=== PATIENT | female | born 1950 | race Caucasian/White ===

== ENCOUNTER 2017-11-15 10:54 | Emergency (ER) | payer BC ==
--- NOTE | 2017-11-15 16:38 | UC ---
Olegario Lopes Angela, scribed for Carlos Luna MD on 11/15/17 at 1117 . Complaint Female HPI - HPI Summary HPI Summary: This pt is a 67 y/o female presenting to [facility] c/o dysuria, urinary frequency and urgency for the past couple of days. She states today she developed low back pain bilaterally. Denies fever, chills, abd pain, vaginal discharge or bleeding, nausea, vomiting. Pt has allergies to Cymbalta, macrodantin, penicillin, Lyrica. - History Of Current Complaint Chief Complaint: UCGU Stated Complaint: POSSIBLE UTI Time Seen by Provider: 11/15/17 11:07 Hx Obtained From: Patient Onset/Duration: Lasting Days, Still Present Timing: Lasting Days Severity Currently: Severe Pain Intensity: 10 Pain Scale Used: 0-10 Numeric Aggravating Factor(s): Nothing Alleviating Factor(s): Nothing Associated Signs And Symptoms: Positive: Back Pain. Negative: Fever, Vaginal Bleeding/Discharge, Vaginal Discharge, Nausea, Vomiting(# Of Episodes =) - Allergies/Home Medications Allergies/Adverse Reactions: Allergies Allergy/AdvReac Type Severity Reaction Status Date / Time duloxetine [From Cymbalta] Allergy Rash Verified 11/15/17 11:21 nitrofurantoin Allergy Unknown Verified 11/15/17 11:21 [From Macrodantin] Reaction Details Penicillins Allergy Hives Verified 11/15/17 11:13 pregabalin [From Lyrica] Allergy Rash Verified 11/15/17 11:21 shellfish derived Allergy Hives Verified 11/15/17 11:21 Home Medications: Home Medications Albuterol HFA INHALER* [Ventolin HFA Inhaler*] 1 puff INH Q4H 11/15/17 [History Confirmed 11/15/17] Baclofen TAB* [Lioresal TAB*] 10 mg PO TID 11/15/17 [History Confirmed 11/15/17] Buspirone HCl 10 mg 11/15/17 [History] Dicyclomine CAP* [Bentyl CAP*] 10 mg PO TID 11/15/17 [History Confirmed 11/15/17 ] Escitalopram Oxalate [Lexapro 20 mg] 20 mg PO DAILY 11/15/17 [History Confirmed 11/15/17] Fluticasone NASAL SPRAY 50MCG* [Flonase NASAL SPRAY 50MCG*] 2 spray BOTH NARES DAILY 11/15/17 [History Confirmed 11/15/17] Levothyroxine TAB* [Synthroid TAB*] 75 mcg PO 0800 11/15/17 [History Confirmed 11/15/17] Montelukast Sodium TAB* [Singulair TAB*] 10 mg PO DAILY 11/15/17 [History Confirmed 11/15/17] celeCOXIB CAP* [CeleBREX CAP*] 100 mg PO DAILY 11/15/17 [History Confirmed 11/15] traZODone TAB* [Desyrel TAB*] 50 mg PO BEDTIME 11/15/17 [History Confirmed 11/15] PMH/Surg Hx/FS Hx/Imm Hx - Additional Past Medical History Additional PMH: PMHx: fibromyalgia Other Cancer History: Anal CA - Surgical History Surgical History: Yes Surgery Procedure, Year, and Place: anal CA - Family History Known Family History: Negative: Diabetes - Social History Alcohol Use: Occasionally Substance Use Type: None Smoking Status (MU): Never Smoked Tobacco Review of Systems Constitutional: Negative Skin: Negative Eyes: Negative ENT: Negative Respiratory: Negative Cardiovascular: Negative Gastrointestinal: Negative Genitourinary: Dysuria, Frequency, Urgency, Other - NEG: vaginal bleeding, vaginal discharge Motor: Negative Neurovascular: Negative Musculoskeletal: Other: - low back pain Neurological: Negative Psychological: Negative All Other Systems Reviewed And Are Negative: Yes Physical Exam - Summary Physical Exam Summary: VITAL SIGNS: Reviewed. GENERAL: Patient is a well-developed and nourished female who is lying comfortable in the stretcher. Patient is not in any acute respiratory distress. HEAD AND FACE: Normocephalic EYES: PERRLA, EOMI x 2. EARS: Hearing grossly intact. MOUTH: Oropharynx within normal limits. NECK: Supple, trachea is midline, no adenopathy, no JVD, no carotid bruit. CHEST: Symmetric, no tenderness at palpation LUNGS: Clear to auscultation bilaterally. No wheezing or crackles. CVS: Regular rate and rhythm, S1 and S2 present, no murmurs or gallops appreciated. ABDOMEN: Soft, non-tender. Bowel sounds are normal. No abdominal abnormal pulsations. EXTREMITIES: Full ROM in all major joints, no edema, no cyanosis or clubbing. NEURO: Alert and oriented x 3. No acute neurological deficits. Speech is normal and follows commands. SKIN: Dry and warm Triage Information Reviewed: Yes Vital Signs: Initial Vital Signs Temp 98.7 F 11/15/17 11:07 Pulse 99 11/15/17 11:07 Resp 18 11/15/17 11:07 BP 129/59 11/15/17 11:07 Pulse Ox 96 11/15/17 11:07 Vital Signs Reviewed: Yes Complaint Female Dx - Course Course Of Treatment: This pt is a 67 y/o female presenting to [facility] c/o dysuria, urinary frequency and urgency for the past couple of days. She states today she developed low back pain bilaterally. Denies abd pain, vaginal discharge or bleeding, nausea, vomiting. Pt has allergies to Cymbalta, macrodantin, penicillin, Lyrica. POC urinalysis is positive for UTI. She reports she has taken Bactrim and Pyridium in the past. Therefore, she will be given these prescriptions and she will be discharged home to follow up with her PCP. I discussed the urinalysis results with the pt. Pt was instructed to return to the urgent care or go to the ER immediately if any of the symptoms return or worsens. Plan of care was discussed with the patient and pt understands and agrees. All questions were answered to patient satisfaction. There were no further complaints or concerns. Pt is hemodynamically stable, alert and oriented x3. - Differential Dx/Diagnosis Provider Diagnoses: UTI Discharge - Sign-Out/Discharge Documenting (check all that apply): Discharge/Admit/Transfer - Discharge - Discharge Plan Condition: Stable Disposition: HOME Prescriptions: Phenazopyridine TAB* [Pyridium 100 mg TAB*] 200 mdi PO TID #9 tab Sulfamethox/Trimethoprim DS* [Bactrim DS 800/160 TAB*] 1 tab PO BID #14 tab Patient Education Materials: Urinary Tract Infection in Women (ED) Referrals: [facility] [Outside] No Primary Care Phys,NOPCP [Primary Care Provider] - Additional Instructions: Take medications as instructed Increase your fluid intake Return to the UC if symptoms worsen The documentation as recorded by the Olegario mcdaniels Angela accurately reflects the service I personally performed and the decisions made by me, Carlos Luna MD.
--- NOTE | 2017-11-17 15:30 | PN ---
Progress Note - Progress Note Date of Service: 11/15/17 Note: Patient urine culture grew Escherichia coli Patient was placed on Bactrim prior to discharge Bactrim is sensitive to organism , Nothing further at this time
== END 2017-11-15 11:23 | disposition home or self-care (01) ==
LOC: UCEAST 10:54
DX: N39.0 Urinary tract infection, site not specified (principal); M79.7 Fibromyalgia; Z85.048 Personal history of other malignant neoplasm of rectum, rectosigmoid junction, and anus; Z88.1 Allergy status to other antibiotic agents; Z88.0 Allergy status to penicillin; Z88.8 Allergy status to other drugs, medicaments and biological substances
CPT/HCPCS: 81003; 87077; 87086; 87186; 99202; G0463